=== PATIENT | female | born 1995 | race Two or more races ===

== ENCOUNTER 2019-03-20 11:42 | Emergency (ER) | payer OTHER ==
[~2019-03-20] VITALS: Ht 162.6 cm; Wt 126.6 kg
--- NOTE | 2019-03-20 11:42 | NUR ---
BIB FAMILY C/O DIFFUSE ABDOMINAL PAIN, HEADACHE, N/V AND EPISODES OF STUTTERING. TO ER BED 7, HOOKED TO MONITOR, CHANGED TO HOSP GOWN, PROVIDED W WARM BLANKET, AOx 4, AWAITING MD STROUD
--- NOTE | 2019-03-20 11:55 | NUR ---
DR MCGOVERN AT BEDSIDE
[2019-03-20] MEDS ORDERED: ONDANSETRON HCL/PF 4 MG/2 ML VIAL IVP ONE (12:00)
[2019-03-20] MEDS ORDERED: LORAZEPAM INJ 2 MG/ML VIAL IV ONE (12:00)
[2019-03-20] MEDS ORDERED: IV NS 0.9% 1,000 ML BAG IV ONE (12:00)
[2019-03-20] MEDS ORDERED: ONDANSETRON HCL/PF 4 MG/2 ML VIAL ONE (12:10)
[2019-03-20] MEDS ORDERED: LORAZEPAM INJ 2 MG/ML VIAL ONE (12:11)
[2019-03-20 12:26] LABS: BASOPHILS % (AUTO) 0.1 % (0.0-2.0); EOSINOPHILS % (AUTO) 0.8 % (0.0-6.0); HEMATOCRIT 40 % (33-45); HEMOGLOBIN 13.5 g/dL (11.5-14.8); LYMPHOCYTES # (AUTO) 0.7 /CMM (0.8-4.8); LYMPHOCYTES % (AUTO) 5.7 % (20.0-44.0); MEAN CORPUSCULAR HGB CONC 34 g/dl (31.0-36.0); MEAN CORPUSCULAR VOLUME 91 fL (82-100); MONOCYTES # (AUTO) 0.6 /CMM (0.1-1.30); MONOCYTES % (AUTO) 4.4 % (2.0-12.0); NEUTROPHILS # (AUTO) 11.4 /CMM (1.8-8.9); PLATELET COUNT (AUTO) 315 /CMM (150-450); RED BLOOD CELL COUNT(AUTO) 4.35 MIL/uL (4.0-5.2); WHITE BLOOD COUNT (AUTO) 12.8 K/uL (4.3-11.0)
[2019-03-20 12:31] LABS: APPEARANCE,URINE Clear (CLEAR); BILIRUBIN,URINE Negative (NEGATIVE); BLOOD, URINE Trace-lysed Ery/uL (NEGATIVE); COLOR,URINE Yellow (YELLOW); KETONES,URINE Negative (NEGATIVE); LEUKOCYTE ESTERASE ,URINE Negative (NEGATIVE); NITRITE, URINE Negative (NEGATIVE); PH,URINE 5.5 (5.0-8.0); PROTEIN,URINE Negative (NEGATIVE); UGLUCOSE Negative (NEGATIVE); UROBILINOGEN,URINE 0.2 EU/dL (0.2)
[2019-03-20 12:32] LABS: CREATININE 0.9 mg/dL (0.6-1.3); POTASSIUM 3.9 mmol/L (3.5-5.1)
[2019-03-20 12:38] LABS: ALBUMIN 3.9 g/dL (3.4-5.0); BILIRUBIN,DIRECT 0.1 mg/dL (0.0-0.2); BILIRUBIN,TOTAL 0.5 mg/dL (0.2-1.0); TOTAL PROTEIN, SERUM 7.5 g/dL (6.4-8.2)
[2019-03-20 13:04] LABS: BACTERIA,URINE Rare /HPF (None Seen); SQUAMOUS EPITHELIAL CELL,UR Few /HPF (None Seen); WBC,URINE 0-2 /HPF (0-3)
[2019-03-20 14:17] VITALS: BP 100/112
--- NOTE | 2019-03-20 14:17 | NUR ---
Patient discharged to home in stable condition. Written and verbal after care instructions given. Patient verbalizes understanding of instruction.IV removed. Catheter intact and site benign. Pressure and 4x4 applied to site. No bleeding noted.
== END 2019-03-20 14:17 | disposition home or self-care (01) ==
LOC: ER 11:45
DX: R11.10 Vomiting, unspecified (principal); R19.7 Diarrhea, unspecified; R10.84 Generalized abdominal pain; R51 Headache; J45.909 Unspecified asthma, uncomplicated; Z98.890 Other specified postprocedural states
CPT/HCPCS: 36415; 70450; 74176; 80048; 80076; 81001; 83690; 84703; 85025; 96361; 96374; 96375; 99284; J2060; J2405; J7030; 81000-TC

== ENCOUNTER 2019-09-06 15:27 | Emergency (ER) | payer OTHER ==
[~2019-09-06] VITALS: Ht 162.6 cm; Wt 134.3 kg
[2019-09-06 15:33] VITALS: BP 153/99
--- NOTE | 2019-09-06 15:40 | NUR ---
CLINICAL CODER AT BEDSIDE FOR XRAY.
--- NOTE | 2019-09-06 17:10 | NUR ---
WALKING APPLIED BY [employer].
--- NOTE | 2019-09-06 17:19 | NUR ---
Patient discharged to home in stable condition. Written and verbal after care instructions given. Patient verbalizes understanding of instruction.
== END 2019-09-06 17:22 | disposition home or self-care (01) ==
LOC: ER 15:27
DX: S93.492A Sprain of other ligament of left ankle, initial encounter (principal); J45.909 Unspecified asthma, uncomplicated; Z98.890 Other specified postprocedural states; W01.0XXA Fall on same level from slipping, tripping and stumbling without subsequent striking against object, initial encounter; Y93.89 Activity, other specified; Y92.89 Other specified places as the place of occurrence of the external cause; Y99.8 Other external cause status
CPT/HCPCS: 73590-TC; 73610-TC

== ENCOUNTER 2019-09-14 22:08 | Emergency (ER) | payer OTHER ==
[~2019-09-14] VITALS: Ht 162.6 cm; Wt 133.8 kg
[2019-09-14 22:14] VITALS: BP 172/74
--- NOTE | 2019-09-14 22:35 | NUR ---
Dr. Silva at bedside for i&d.
--- NOTE | 2019-09-14 22:52 | NUR ---
pt cleared for discharge per dr. adames, pt received discharge instructions. pt verbalized understanding. pt ambulatory with steady gait.
== END 2019-09-14 22:54 | disposition home or self-care (01) ==
LOC: ER 22:10
DX: L02.416 Cutaneous abscess of left lower limb (principal); J45.909 Unspecified asthma, uncomplicated; Z98.890 Other specified postprocedural states
CPT/HCPCS: 10060; 99283; A6403; A6407

== ENCOUNTER 2020-07-29 23:16 | Emergency (ER) | payer OTHER ==
[~2020-07-29] VITALS: Ht 162.6 cm; Wt 104.3 kg
[2020-07-29 23:38] VITALS: BP 123/72
[2020-07-30] MEDS ORDERED: HYDR-4209 PO (00:58)
[2020-07-30] MEDS ORDERED: HYDROCODONE/APAP 5/325MG TABLET ONE (01:31)
[2020-07-30] MEDS ORDERED: CYCLOBENZAPRINE 10 MG TABLET ONE (01:31)
[2020-07-30] MEDS: HYDROCODONE/APAP 5/325MG TABLET PO ONE (01:37)
[2020-07-30] MEDS: CYCLOBENZAPRINE 10 MG TABLET PO ONE (01:37)
== END 2020-07-30 01:44 | disposition home or self-care (01) ==
LOC: ER 23:16
DX: S93.491A Sprain of other ligament of right ankle, initial encounter (principal); S40.021A Contusion of right upper arm, initial encounter; J45.909 Unspecified asthma, uncomplicated; Z98.890 Other specified postprocedural states; V49.69XA Unspecified car occupant injured in collision with other motor vehicles in traffic accident, initial encounter; Y93.89 Activity, other specified; Y92.413 State road as the place of occurrence of the external cause; Y99.8 Other external cause status
CPT/HCPCS: 73030-TC; 73090-TC; 73610-TC

== ENCOUNTER 2021-10-24 22:40 | Emergency (ER) | payer OTHER ==
[~2021-10-24] VITALS: Ht 162.6 cm; Wt 75.3 kg
[~2021-10-24 22:40] MED LIST: HYDR-4209 PO
--- NOTE | 2021-10-25 00:01 | NUR ---
BIB MOM FOR C/O SEVERE ABD PAIN AND N/V X 5 DAYS. -DIARRHEA, HEMATURIA OR DYSURIA. PATIENT ALERT AND ORIENTED X4. AMBULATORY WITH NON LABORED BREATHING IN BED 12 ON MONITOR AND POX, SEEN BY MD AT TRIAGE
--- NOTE | 2021-10-25 00:02 | NUR ---
URINE COLLECTED AND SENT TO LAB
--- NOTE | 2021-10-25 00:04 | NUR ---
CORY JADE [phone]
[2021-10-25] MEDS ORDERED: MAG HYDROX/AL HYDROX/SIMETH 30 ML UDC ONE (00:11)
[2021-10-25] MEDS ORDERED: LIDOCAINE VISCOUS 2% UD 15 ML UDC ONE (00:11)
[2021-10-25] MEDS ORDERED: ONDANSETRON HCL/PF 4 MG/2 ML VIAL ONE (00:11)
--- NOTE | 2021-10-25 00:14 | NUR ---
R HAND #20G S/L BLOOD COLLLECTED AND SENT TO LAB
[2021-10-25] MEDS: IV NS 0.9% 500 ML BAG IV ONE (00:26)
[2021-10-25] MEDS: LIDOCAINE VISCOUS 2% UD 15 ML UDC MM ONE (00:26)
[2021-10-25] MEDS: MAG HYDROX/AL HYDROX/SIMETH 30 ML UDC PO ONE (00:26)
[2021-10-25] MEDS: ONDANSETRON HCL/PF 4 MG/2 ML VIAL IVP ONE (00:26)
--- NOTE | 2021-10-25 00:42 | NUR ---
PT TAKEN TO CT VIA COURT
--- NOTE | 2021-10-25 00:48 | NUR ---
PT RETURNED TO ER BED [address]
[2021-10-25 00:52] LABS: BASOPHILS % (AUTO) 0.4 % (0.0-2.0); EOSINOPHILS % (AUTO) 1.5 % (0.0-6.0); HEMATOCRIT 39 % (33-45); HEMOGLOBIN 13.1 g/dL (11.5-14.8); LYMPHOCYTES # (AUTO) 3.9 K/uL (0.8-4.8); LYMPHOCYTES % (AUTO) 43.3 % (20.0-44.0); MEAN CORPUSCULAR HGB CONC 33 g/dl (31.0-36.0); MEAN CORPUSCULAR VOLUME 94 fL (82-100); MONOCYTES # (AUTO) 0.6 K/uL (0.1-1.30); MONOCYTES % (AUTO) 6.8 % (2.0-12.0); NEUTROPHILS # (AUTO) 4.3 K/uL (1.8-8.9); PLATELET COUNT (AUTO) 371 K/uL (150-450); RED BLOOD CELL COUNT(AUTO) 4.18 MIL/uL (4.0-5.2); WHITE BLOOD COUNT (AUTO) 8.9 K/uL (4.3-11.0)
[2021-10-25 00:56] LABS: BILIRUBIN,URINE NEGATIVE (NEGATIVE); COLOR,URINE YELLOW (YELLOW); LEUKOCYTE ESTERASE ,URINE NEGATIVE (NEGATIVE); NITRITE, URINE NEGATIVE (NEGATIVE); PROTEIN,URINE NEGATIVE (NEGATIVE); UGLUCOSE NEGATIVE (NEGATIVE); UROBILINOGEN,URINE 0.2 EU/dL (0.2)
[2021-10-25 01:04] LABS: CALCIUM, SERUM 9.3 mg/dL (8.5-10.1); CREATININE 0.8 mg/dL (0.6-1.3); POTASSIUM 3.8 mmol/L (3.5-5.1)
[2021-10-25 01:08] LABS: BACTERIA,URINE Rare /HPF (None Seen); SQUAMOUS EPITHELIAL CELL,UR Few /HPF (None Seen); WBC,URINE 0-2 /HPF (0-3)
[2021-10-25 01:11] LABS: ALBUMIN 4.3 g/dL (3.4-5.0); BILIRUBIN,DIRECT 0.1 mg/dL (0.0-0.2); BILIRUBIN,TOTAL 0.4 mg/dL (0.2-1.0); TOTAL PROTEIN, SERUM 7.9 g/dL (6.4-8.2)
[2021-10-25] MEDS ORDERED: MORPHINE SULFATE INJ 4 MG/ML DISP.SYRIN ONE (01:38)
[2021-10-25] MEDS: MORPHINE SULFATE INJ 2 MG/ML DISP.SYRIN IV ONE (01:41)
[2021-10-25] MEDS ORDERED: diphenhydrAMINE HCL 50 MG/ML VIAL ONE (01:49)
[2021-10-25] MEDS ORDERED: OMEP20CA15 PO (02:09)
[2021-10-25 02:14] VITALS: BP 136/85
--- NOTE | 2021-10-25 02:14 | NUR ---
Patient discharged to home in stable condition. Written and verbal after care instructions given. Patient verbalizes understanding of instruction.
== END 2021-10-25 02:26 | disposition home or self-care (01) ==
LOC: ER 22:43
DX: K44.9 Diaphragmatic hernia without obstruction or gangrene (principal); K21.9 Gastro-esophageal reflux disease without esophagitis; R11.2 Nausea with vomiting, unspecified; J45.909 Unspecified asthma, uncomplicated; Z98.890 Other specified postprocedural states
CPT/HCPCS: 99284; 74176; 96374; 96361; 96375; 85025; 80048; 83690; 80076; 84703; 81001; 36415; J1200; J2270; J2405; J7040